=== PATIENT | male | born 1930 | race Caucasian/White ===

== ENCOUNTER 2017-02-01 11:16 | Day surgery (SDC) | payer OTHER, MEDICARE ==
[~2017-02-01] VITALS: Ht 172.7 cm; Wt 88.5 kg
[~2017-02-01 11:16] MED LIST: ASPIR-LOW81 MG PO; ATORVASTATIN CA80 MG PO; Ascorbic Acid,Ester- PO; CHILD ASPIRIN81 M1 PO; CLOPIDOGREL75 MG PO; Cardizem CD,Cartia X PO; Cardura PO; DILTIAZEM 24HR180 MG PO; Dulcolax PO; Ecotrin PO; FLOMAX0.4 MG PO; Flomax PO; Folvite PO; HYZAAR 50-121 TABLET PO; LOPRESSOR25 MG PO; MIRALAX255 GM PO; Miralax, Glycolax PO; NITROSTAT0.4 MG SL; NORVASC2.5 MG PO; OMEPRAZOLE40 M1 PO; Oscal 500 w/Vitamin PO; PERCOCET 5/31 TABLET PO; PROSCAR5 MG PO; Percocet 5/325,Endoc PO; TYLENOL REGULA325 MG PO; Theragran PO; ZANTAC150 MG PO; [UNRECOGNIZED DRUG - CODE] PO; celeBREX PO
== END 2017-02-01 13:13 | disposition home or self-care (01) ==
LOC: PAIN 11:16 → SDC 11:45 → PAIN 13:13
DX: M47.816 Spondylosis without myelopathy or radiculopathy, lumbar region (principal); M43.16 Spondylolisthesis, lumbar region; M48.56XA Collapsed vertebra, not elsewhere classified, lumbar region, initial encounter for fracture; M51.36 Other intervertebral disc degeneration, lumbar region; M47.812 Spondylosis without myelopathy or radiculopathy, cervical region; I10 Essential (primary) hypertension; I25.2 Old myocardial infarction; K21.9 Gastro-esophageal reflux disease without esophagitis; R94.31 Abnormal electrocardiogram [ECG] [EKG]; K90.9 Intestinal malabsorption, unspecified; E66.3 Overweight; Z68.29 Body mass index [BMI] 29.0-29.9, adult; I25.10 Atherosclerotic heart disease of native coronary artery without angina pectoris; Z95.5 Presence of coronary angioplasty implant and graft; Z87.891 Personal history of nicotine dependence; Z88.0 Allergy status to penicillin; Z79.82 Long term (current) use of aspirin; Z79.891 Long term (current) use of opiate analgesic; Z79.899 Other long term (current) drug therapy
CPT/HCPCS: J1030; S0020

== ENCOUNTER 2017-02-08 10:59 | Day surgery (SDC) | payer OTHER, MEDICARE ==
[~2017-02-08] VITALS: Ht 175.3 cm; Wt 88.5 kg
== END 2017-02-08 12:47 | disposition home or self-care (01) ==
LOC: PAIN 10:59 → SDC 11:45 → PAIN 12:47
DX: M47.816 Spondylosis without myelopathy or radiculopathy, lumbar region (principal); G89.29 Other chronic pain; M54.5 Low back pain; M43.16 Spondylolisthesis, lumbar region; M96.1 Postlaminectomy syndrome, not elsewhere classified; M50.30 Other cervical disc degeneration, unspecified cervical region; M47.812 Spondylosis without myelopathy or radiculopathy, cervical region; I10 Essential (primary) hypertension; M79.1 Myalgia; I25.10 Atherosclerotic heart disease of native coronary artery without angina pectoris; K21.0 Gastro-esophageal reflux disease with esophagitis; M25.551 Pain in right hip; E78.1 Pure hyperglyceridemia; M51.36 Other intervertebral disc degeneration, lumbar region; E66.3 Overweight; I49.3 Ventricular premature depolarization; R00.1 Bradycardia, unspecified; I87.2 Venous insufficiency (chronic) (peripheral); I25.2 Old myocardial infarction; Z87.891 Personal history of nicotine dependence; Z88.0 Allergy status to penicillin; Z79.82 Long term (current) use of aspirin; Z79.891 Long term (current) use of opiate analgesic; Z79.899 Other long term (current) drug therapy
CPT/HCPCS: J1030; J2250; J3010; S0020

== ENCOUNTER 2017-02-13 19:07 | Emergency (ER) | payer OTHER, MEDICARE ==
[~2017-02-13] VITALS: Ht 175.3 cm; Wt 78.2 kg
[2017-02-13 20:14] LABS: HEMATOCRIT 45.6 % (38.0-50.0); MCH 30.6 PG (29.0-34.0); MCHC 34.9 G/DL (30.0-36.0); MCV 87.7 FL (86-99); MEAN PLAT.VOLUME 9.6 uM^3 (9.0-12.4); PLATELET COUNT 221 K/uL (156-360); RBC DIS.WIDTH-CV 14.7 % (11.8-14.6); RBC DIS.WIDTH-SD 47.6 % (39-53); WHITE BLOOD COUNT 18.7 K/uL (4.1-10.2)
[2017-02-13 20:19] LABS: CHLORIDE 104 mEq/L (99-109); POTASSIUM 3.9 mEq/L (3.7-5.4); SODIUM 140 mEq/L (136-147)
[2017-02-13 20:21] LABS: GLUCOSE 104 mg/dL (70-99)
[2017-02-13 20:22] LABS: ANION GAP 12 MEQ/L (2-14)
[2017-02-13 20:23] LABS: TOTAL BILIRUBIN 1.2 mg/dL (0.0-1.0)
[2017-02-13 20:25] LABS: ALKALINE PHOSPHATASE 155 IU/L (3-129); GFR ESTIMATE (CALCULATED) > 59 mL/min/
[2017-02-13 20:26] LABS: UREA NITROGEN (BUN) 29 mg/dL (9-23)
[2017-02-13 20:31] LABS: TROP-I INTERPRETATION NEGATIVE; TROPONIN-I < 0.01 ng/mL (0.0-0.30)
[2017-02-13 21:58] LABS: LIPASE 7 U/L (1.0-51.0)
[2017-02-13 22:38] LABS: ADD MIUA? YES; BILIRUBIN NEGATIVE; BLOOD SMALL; COLOR YELLOW ((YELLOW)); GLUCOSE (STRIP) NEGATIVE; KETONES NEGATIVE; LEUKOCYTES NEGATIVE; NITRITE NEGATIVE; PROTEIN (STRIP) NEGATIVE; SPECIFIC GRAVITY 1.013 (1.000-1.030)
[2017-02-13 22:54] LABS: BACTERIA NONE SEEN /HPF; EPITHELIAL CELLS RARE /HPF; MUCUS TRACE /LPF; UCUL ADDED? NO; WHITE BLOOD CELLS 0-5 /HPF (0-5)
[2017-02-14] MEDS ORDERED: ZOFRAN4 MG PO (00:23)
[2017-02-14] MEDS ORDERED: NORCO 5/3251 TABLET PO (00:23)
[2017-02-14 00:49] VITALS: BP 152/69
== END 2017-02-14 00:57 ==
LOC: EME → EDBD 19:07 → EME 02-14 00:57
PROVIDERS: Emergency Medicine
DX: R10.13 Epigastric pain (principal); I25.10 Atherosclerotic heart disease of native coronary artery without angina pectoris; I25.2 Old myocardial infarction; Z88.0 Allergy status to penicillin; Z87.891 Personal history of nicotine dependence
CPT/HCPCS: 74022; 74177; 80048; 80053; 81003; 83605; 83690; 84484; 85027; 93005; 99281; 99284; J7030

== ENCOUNTER 2017-02-22 02:31 | Inpatient (IN) | payer OTHER, MEDICARE ==
[~2017-02-22] VITALS: Ht 167.6 cm; Wt 41.8 kg
[~2017-02-22 02:31] MED LIST changes: +NORCO 5/3251 TABLET PO; +ZOFRAN4 MG PO
[2017-02-22 03:34] LABS: BASOPHIL COUNT 0.1 K/uL (0-0.1); EOSINOPHIL (%) 0.9 % (0-5); EOSINOPHIL COUNT 0.2 K/uL (0-0.3); IMMATURE GRANULOCYTE (%) 1.7 % (0.0-0.7); IMMATURE GRANULOCYTE COUNT 0.3 K/uL; LYMPHOCYTE COUNT 1.1 K/uL (1.0-2.8); MCHC 34.8 G/DL (30.0-36.0); MCV 89.1 FL (86-99); MEAN PLAT.VOLUME 9.5 uM^3 (9.0-12.4); MONOCYTE (%) 7.7 % (3-12); MONOCYTE COUNT 1.4 K/uL (0-0.8); PLATELET COUNT 171 K/uL (156-360); RBC DIS.WIDTH-CV 14.8 % (11.8-14.6); RBC DIS.WIDTH-SD 47.4 % (39-53); RED BLOOD COUNT 4.94 M/uL (4.00-5.50); WHITE BLOOD COUNT 18.1 K/uL (4.1-10.2)
[2017-02-22 03:44] LABS: CHLORIDE 102 mEq/L (99-109); POTASSIUM 3.7 mEq/L (3.7-5.4); SODIUM 136 mEq/L (136-147)
[2017-02-22 03:46] LABS: GLUCOSE 108 mg/dL (70-99)
[2017-02-22 03:47] LABS: ANION GAP 10 MEQ/L (2-14)
[2017-02-22 03:48] LABS: TOTAL BILIRUBIN 1.3 mg/dL (0.0-1.0)
[2017-02-22 03:49] LABS: ALKALINE PHOSPHATASE 211 IU/L (3-129)
[2017-02-22 03:50] LABS: GFR ESTIMATE (CALCULATED) > 59 mL/min/
[2017-02-22 03:51] LABS: UREA NITROGEN (BUN) 23 mg/dL (9-23)
[2017-02-22 03:53] LABS: LIPASE 2 U/L (1.0-51.0)
[2017-02-22 03:55] LABS: TROP-I INTERPRETATION NEGATIVE; TROPONIN-I < 0.01 ng/mL (0.0-0.30)
[2017-02-22 14:37] VITALS: BP 134/63
[2017-02-22 23:04] VITALS: BP 168/74
[2017-02-23 07:22] LABS: HEMATOCRIT 41.2 % (38.0-50.0); MCH 30.9 PG (29.0-34.0); MCHC 34.2 G/DL (30.0-36.0); MCV 90.2 FL (86-99); PLATELET COUNT 155 K/uL (156-360); RBC DIS.WIDTH-CV 14.9 % (11.8-14.6); RBC DIS.WIDTH-SD 49.4 % (39-53); RED BLOOD COUNT 4.57 M/uL (4.00-5.50)
[2017-02-23 07:28] LABS: WHITE BLOOD COUNT 9.5 K/uL (4.1-10.2)
[2017-02-23 07:33] LABS: ALKALINE PHOSPHATASE 146 IU/L (3-129); ANION GAP 8 MEQ/L (2-14); CHLORIDE 106 MEQ/L (99-109); GFR ESTIMATE (CALCULATED) > 59 mL/min/; GLUCOSE 85 mg/dL (70-99); POTASSIUM 3.6 MEQ/L (3.7-5.4); SAMPLE HEMOLYSIS CHECK 0; SAMPLE ICTERIC CHECK 0; SAMPLE LIPEMIA CHECK 0; SODIUM 139 MEQ/L (136-147); TOTAL BILIRUBIN 0.8 MG/DL (0.0-1.0); UREA NITROGEN (BUN) 18 mg/dL (9-23)
[2017-02-23 07:50] VITALS: BP 144/76
[2017-02-23 16:44] VITALS: BP 120/57
[2017-02-24 00:38] VITALS: BP 135/76
[2017-02-24 07:10] VITALS: BP 144/75
[2017-02-24 08:13] LABS: ALKALINE PHOSPHATASE 283 IU/L (3-129); ANION GAP 7 MEQ/L (2-14); CHLORIDE 108 MEQ/L (99-109); GFR ESTIMATE (CALCULATED) > 59 mL/min/; GLUCOSE 84 mg/dL (70-99); POTASSIUM 3.6 MEQ/L (3.7-5.4); SAMPLE HEMOLYSIS CHECK 0; SAMPLE ICTERIC CHECK 0; SAMPLE LIPEMIA CHECK 0; SODIUM 141 MEQ/L (136-147); TOTAL BILIRUBIN 0.7 MG/DL (0.0-1.0); UREA NITROGEN (BUN) 17 mg/dL (9-23)
[2017-02-24 15:00] VITALS: BP 160/60
[2017-02-25 00:05] VITALS: BP 172/81
[2017-02-25 06:37] LABS: ALKALINE PHOSPHATASE 245 IU/L (3-129); ANION GAP 7 MEQ/L (2-14); CHLORIDE 109 MEQ/L (99-109); GFR ESTIMATE (CALCULATED) > 59 mL/min/; GLUCOSE 85 mg/dL (70-99); POTASSIUM 3.7 MEQ/L (3.7-5.4); SAMPLE HEMOLYSIS CHECK 0; SAMPLE ICTERIC CHECK 0; SAMPLE LIPEMIA CHECK 0; SODIUM 142 MEQ/L (136-147); UREA NITROGEN (BUN) 15 mg/dL (9-23)
[2017-02-25 06:39] LABS: TOTAL BILIRUBIN 0.9 MG/DL (0.0-1.0)
[2017-02-25 06:43] LABS: HEMATOCRIT 40.8 % (38.0-50.0); MCH 31.7 PG (29.0-34.0); MCHC 35.3 G/DL (30.0-36.0); MCV 89.9 FL (86-99); MEAN PLAT.VOLUME 9.8 uM^3 (9.0-12.4); PLATELET COUNT 157 K/uL (156-360); RBC DIS.WIDTH-CV 14.8 % (11.8-14.6); RBC DIS.WIDTH-SD 48.8 % (39-53); RED BLOOD COUNT 4.54 M/uL (4.00-5.50)
[2017-02-25 06:55] LABS: WHITE BLOOD COUNT 6.6 K/uL (4.1-10.2)
[2017-02-25 07:16] VITALS: BP 181/79
[2017-02-25 10:40] VITALS: BP 150/67
[2017-02-25] MEDS ORDERED: ATORVASTATIN CA80 MG PO (11:23)
== END 2017-02-25 13:02 | disposition home or self-care (01) | DRG 445 ==
LOC: EME 02:31 → EDOF 06:14 → 5EAST 07:04
PROVIDERS: Emergency Medicine; Hospitalist; Internal Medicine
DX: K80.30 Calculus of bile duct with cholangitis, unspecified, without obstruction (principal); R13.10 Dysphagia, unspecified; I10 Essential (primary) hypertension; D72.829 Elevated white blood cell count, unspecified; R74.8 Abnormal levels of other serum enzymes; I25.10 Atherosclerotic heart disease of native coronary artery without angina pectoris; Z90.49 Acquired absence of other specified parts of digestive tract; K83.8 Other specified diseases of biliary tract; N40.0 Benign prostatic hyperplasia without lower urinary tract symptoms; M19.90 Unspecified osteoarthritis, unspecified site; K29.70 Gastritis, unspecified, without bleeding; L30.4 Erythema intertrigo; I25.2 Old myocardial infarction; Z87.891 Personal history of nicotine dependence
CPT/HCPCS: 71010; 74181; 76705; 80053; 83690; 84484; 85025; 85027; 87040; 93005; 99281; 99285; J1644; J1956; J2060; J7030

== ENCOUNTER 2017-06-05 13:58 | Day surgery (SDC) | payer OTHER, MEDICARE ==
[~2017-06-05] VITALS: Ht 172.7 cm; Wt 88.9 kg
[~2017-06-05 13:58] MED LIST changes: +LOSARTAN POTASS50 MG PO
== END 2017-06-05 15:45 | disposition home or self-care (01) ==
LOC: PAIN 13:58 → SDC 14:30 → PAIN 15:45
DX: M47.816 Spondylosis without myelopathy or radiculopathy, lumbar region (principal); M54.5 Low back pain; G89.29 Other chronic pain; M43.17 Spondylolisthesis, lumbosacral region; M51.36 Other intervertebral disc degeneration, lumbar region; I10 Essential (primary) hypertension; M79.1 Myalgia; I25.10 Atherosclerotic heart disease of native coronary artery without angina pectoris; K21.0 Gastro-esophageal reflux disease with esophagitis; E78.1 Pure hyperglyceridemia; I25.2 Old myocardial infarction; Z87.891 Personal history of nicotine dependence; Z79.82 Long term (current) use of aspirin; Z79.891 Long term (current) use of opiate analgesic; Z88.0 Allergy status to penicillin
CPT/HCPCS: J1030; J2250; J3010; S0020

== ENCOUNTER 2017-06-12 13:38 | Day surgery (SDC) | payer OTHER, MEDICARE ==
[~2017-06-12] VITALS: Ht 175.3 cm; Wt 88.9 kg
[~2017-06-12 13:38] MED LIST changes: +COZAAR50 MG PO
== END 2017-06-12 16:30 | disposition home or self-care (01) ==
LOC: PAIN 13:38 → SDC 14:15 → PAIN 16:30
DX: M47.816 Spondylosis without myelopathy or radiculopathy, lumbar region (principal); M54.5 Low back pain; G89.29 Other chronic pain; M51.36 Other intervertebral disc degeneration, lumbar region; M43.17 Spondylolisthesis, lumbosacral region; M79.1 Myalgia; M96.1 Postlaminectomy syndrome, not elsewhere classified; C22.1 Intrahepatic bile duct carcinoma; I10 Essential (primary) hypertension; I25.10 Atherosclerotic heart disease of native coronary artery without angina pectoris; E78.1 Pure hyperglyceridemia; I49.3 Ventricular premature depolarization; I25.2 Old myocardial infarction; K21.9 Gastro-esophageal reflux disease without esophagitis; R00.1 Bradycardia, unspecified; Z79.891 Long term (current) use of opiate analgesic; Z87.891 Personal history of nicotine dependence; Z79.82 Long term (current) use of aspirin
CPT/HCPCS: J1030; J3010; S0020

== ENCOUNTER 2017-09-12 20:21 | Inpatient (IN) | payer OTHER, MEDICARE ==
[~2017-09-12] VITALS: Ht 170.2 cm; Wt 88.8 kg
[~2017-09-12 20:21] MED LIST changes: -COZAAR50 MG PO; +LOSARTAN-HCTZ1 EACH PO
[2017-09-12 21:33] LABS: EOSINOPHIL (%) 0.7 % (0-5); EOSINOPHIL COUNT 0.1 K/uL (0-0.3); HEMATOCRIT 43.1 % (38.0-50.0); IMMATURE GRANULOCYTE (%) 0.3 % (0.0-0.7); INSTRUMENT ABS NEUTROPHIL CT 4.6 K/uL; LYMPHOCYTE COUNT 1.5 K/uL (1.0-2.8); MCH 31.4 PG (29.0-34.0); MCHC 35.5 G/DL (30.0-36.0); MCV 88.5 FL (86-99); MEAN PLAT.VOLUME 9.9 uM^3 (9.0-12.4); MONOCYTE (%) 13.4 % (3-12); NEUTROPHIL (%) 64.2 % (45-76); NEUTROPHIL COUNT 4.6 K/uL (1.8-6.4); PLATELET COUNT 161 K/uL (156-360); RBC DIS.WIDTH-CV 14.2 % (11.8-14.6); RBC DIS.WIDTH-SD 45.8 % (39-53); RED BLOOD COUNT 4.87 M/uL (4.00-5.50); WHITE BLOOD COUNT 7.2 K/uL (4.1-10.2)
[2017-09-12 21:41] LABS: CHLORIDE 99 mEq/L (99-109); POTASSIUM 3.4 mEq/L (3.7-5.4); SODIUM 135 mEq/L (136-147)
[2017-09-12 21:43] LABS: GLUCOSE 106 mg/dL (70-99)
[2017-09-12 21:44] LABS: ANION GAP 11 MEQ/L (2-14)
[2017-09-12 21:45] LABS: TOTAL BILIRUBIN 0.6 mg/dL (0.0-1.0)
[2017-09-12 21:46] LABS: ALKALINE PHOSPHATASE 83 IU/L (3-129)
[2017-09-12 21:47] LABS: GFR ESTIMATE (CALCULATED) > 59 mL/min/ (58.99-99999)
[2017-09-12 21:48] LABS: UREA NITROGEN (BUN) 22 mg/dL (9-23)
[2017-09-12] MEDS ORDERED: PERCOCET 5/31 TABLET PO (23:04)
[2017-09-12] MEDS ORDERED: AMLODIPINE BES2.5 MG PO (23:05)
[2017-09-12] MEDS ORDERED: OMEPRAZOLE20 MG PO (23:06)
[2017-09-13 02:14] VITALS: BP 163/75
[2017-09-13 04:39] VITALS: BP 138/65
[2017-09-13 05:01] LABS: ADD MIUA? YES; BILIRUBIN NEGATIVE; BLOOD MODERATE; COLOR YELLOW ((YELLOW)); GLUCOSE (STRIP) NEGATIVE; KETONES NEGATIVE; LEUKOCYTES NEGATIVE; NITRITE NEGATIVE; PROTEIN (STRIP) NEGATIVE; SPECIFIC GRAVITY 1.008 (1.000-1.030); UROBILINOGEN 0.2 MG/DL (0.2-1.0)
[2017-09-13 05:09] LABS: BACTERIA NONE SEEN /HPF; EPITHELIAL CELLS NONE SEEN /HPF; MUCUS NONE SEEN /LPF; RED BLOOD CELLS 0-5 /HPF (0-5); UCUL ADDED? NO; WHITE BLOOD CELLS 0-5 /HPF (0-5)
[2017-09-13 09:14] VITALS: BP 148/70
[2017-09-13 11:59] VITALS: BP 149/69
[2017-09-13 16:41] VITALS: BP 122/68
[2017-09-13 23:08] VITALS: BP 140/72
[2017-09-14 05:09] VITALS: BP 136/68
[2017-09-14 06:32] LABS: HEMATOCRIT 37.5 % (38.0-50.0); MCH 31.4 PG (29.0-34.0); MCHC 35.2 G/DL (30.0-36.0); MCV 89.1 FL (86-99); MEAN PLAT.VOLUME 10.2 uM^3 (9.0-12.4); PLATELET COUNT 142 K/uL (156-360); RBC DIS.WIDTH-SD 45.6 % (39-53); RED BLOOD COUNT 4.21 M/uL (4.00-5.50); WHITE BLOOD COUNT 4.4 K/uL (4.1-10.2)
[2017-09-14 06:44] LABS: ANION GAP 8 MEQ/L (2-14); CHLORIDE 106 MEQ/L (99-109); GFR ESTIMATE (CALCULATED) > 59 mL/min/ (58.99-99999); GLUCOSE 111 mg/dL (70-99); SAMPLE HEMOLYSIS CHECK 2; SAMPLE ICTERIC CHECK 0; SAMPLE LIPEMIA CHECK 0; SODIUM 139 MEQ/L (136-147); UREA NITROGEN (BUN) 14 mg/dL (9-23)
[2017-09-14 07:44] VITALS: BP 128/63
[2017-09-14 11:49] VITALS: BP 156/71
[2017-09-14 16:25] VITALS: BP 133/61
[2017-09-14 20:00] VITALS: BP 130/64
[2017-09-15 00:09] VITALS: BP 130/58
[2017-09-15 04:14] VITALS: BP 140/70
[2017-09-15 08:31] VITALS: BP 155/73
[2017-09-15 15:58] VITALS: BP 133/64
[2017-09-16 00:32] VITALS: BP 150/80
[2017-09-16 06:31] LABS: EOSINOPHIL (%) 0.3 % (0-5); HEMATOCRIT 40.5 % (38.0-50.0); IMMATURE GRANULOCYTE COUNT 0.1 K/uL; INSTRUMENT ABS NEUTROPHIL CT 4.2 K/uL; LYMPHOCYTE COUNT 2.2 K/uL (1.0-2.8); MCH 31.2 PG (29.0-34.0); MCHC 35.3 G/DL (30.0-36.0); MCV 88.2 FL (86-99); MEAN PLAT.VOLUME 9.9 uM^3 (9.0-12.4); MONOCYTE (%) 9.8 % (3-12); MONOCYTE COUNT 0.7 K/uL (0-0.8); NEUTROPHIL (%) 57.8 % (45-76); NEUTROPHIL COUNT 4.2 K/uL (1.8-6.4); PLATELET COUNT 163 K/uL (156-360); RBC DIS.WIDTH-CV 14.2 % (11.8-14.6); RBC DIS.WIDTH-SD 45.7 % (39-53); RED BLOOD COUNT 4.59 M/uL (4.00-5.50); WHITE BLOOD COUNT 7.3 K/uL (4.1-10.2)
[2017-09-16 06:56] LABS: ANION GAP 11 MEQ/L (2-14); CHLORIDE 109 MEQ/L (99-109); GFR ESTIMATE (CALCULATED) > 59 mL/min/ (58.99-99999); GLUCOSE 89 mg/dL (70-99); POTASSIUM 3.8 MEQ/L (3.7-5.4); SAMPLE HEMOLYSIS CHECK 0; SAMPLE ICTERIC CHECK 0; SAMPLE LIPEMIA CHECK 0; SODIUM 144 MEQ/L (136-147); UREA NITROGEN (BUN) 17 mg/dL (9-23)
[2017-09-16 07:54] VITALS: BP 130/71
[2017-09-16] MEDS ORDERED: OSELTAMIVIR PHO30 MG PO (10:55)
[2017-09-16] MEDS ORDERED: ADVAIR HFA120 INHALA IH (10:56)
[2017-09-16] MEDS ORDERED: PREDNISONE20 MG PO (11:03)
[2017-09-16] MEDS ORDERED: PERCOCET 5/31 TABLET PO (11:04)
== END 2017-09-16 12:58 | DRG 195 ==
LOC: EME 20:21 → EDOF 22:47 → ENRESERV 22:48 → EDOF 09-13 01:11 → ENRESERV 09-13 01:17 → EDOF 09-13 01:17 → CANRESERV 09-13 01:17 → 3EAST 09-13 01:17 → ENRESERV 09-13 01:22 → 3EAST 09-13 02:05
PROVIDERS: Emergency Medicine Emergency Medical Services; Physician Assistant Medical; Student in an Organized Health Care Education/Training Program
DX: J10.1 Influenza due to other identified influenza virus with other respiratory manifestations (principal); I25.10 Atherosclerotic heart disease of native coronary artery without angina pectoris; I10 Essential (primary) hypertension; N40.0 Benign prostatic hyperplasia without lower urinary tract symptoms; R33.9 Retention of urine, unspecified; M19.90 Unspecified osteoarthritis, unspecified site; J20.9 Acute bronchitis, unspecified; R31.29 Other microscopic hematuria; I25.119 Atherosclerotic heart disease of native coronary artery with unspecified angina pectoris; I25.2 Old myocardial infarction; Z87.891 Personal history of nicotine dependence; E78.5 Hyperlipidemia, unspecified; Z88.0 Allergy status to penicillin; Z90.49 Acquired absence of other specified parts of digestive tract; K21.9 Gastro-esophageal reflux disease without esophagitis; R09.02 Hypoxemia
CPT/HCPCS: 71010; 71250; 80048; 80053; 81003; 85025; 85027; 87502; 94640; 94640 76; 99202; 99281; 99285; G0378; G8987 GO CI; G8988 GO CH; J0456; J1644; J7030; J7120; J7512